=== PATIENT | male | born 1960 | race Caucasian/White ===

== ENCOUNTER 2016-09-12 11:34 | Emergency (ER) | payer OTHER ==
[~2016-09-12] VITALS: Ht 172.7 cm; Wt 93.0 kg
--- NOTE | ~2016-09-12 | EKG ---
[place] [id number] [employer] [facility] [place] [address] ELECTROCARDIOGRAM REPORT Name: CLAUDIA CHERRY Room #: DEP Tracy#: [id number] Admission: 09/12/16 Attend Phys: Discharge: 09/12/16 Date of : 60 Report #: [id number] THIS REPORT FOR: //name// [facility] ED Test Date: 2016-09-12 Test Time: 12:06:23 Pat Name: CLAUDIA CHERRY Department: Room: Gender: Substitute Teacher: jack : 1960 Requested By: Peggy Lala Order Number: [id number] MD: Garett Medina Measurements Intervals Herman Rate: 85 P: 30 KS: 165 QRS: -6 QRSD: 96 T: 16 QT: 369 QTc: 439 Interpretive Statements Sinus rhythm Left atrial enlargement Probable anteroseptal infarct, old No previous ECG available for comparison Electronically Signed On 09-12-2016 23:00:07 CDT by Garett Medina [email or web address] <ELECTRONICALLY SIGNED> By: Garett Medina MD 09/12/16 2300 1206 [id number] Garett Medina MD /TOSHIA
[2016-09-12 12:40] LABS: ABSOLUTE NEUTROPHILS 3.9 thou/uL (1.4-8.2); BASOPHILS 0.6 % (0.0-2.0); EOSINOPHILS 3.3 % (0.0-3.0); HEMATOCRIT 44.8 % (42.0-52.0); HEMOGLOBIN 15.8 gm/dL (14.0-18.0); LYMPHOCYTES 29.5 % (24.0-44.0); MCH 30.9 pg (26.0-34.0); MCHC 35.2 g/dL (28.0-37.0); MCV 87.7 fL (80.0-100.0); MONOCYTES 8.3 % (1.0-8.0); PLATELET COUNT 179 thou/uL (150-400); POLYS 58.3 % (36.0-66.0); RBC 5.11 mil/uL (4.50-6.00); WBC 6.7 thou/uL (4.0-11.0)
[2016-09-12 12:41] LABS: MANUAL DIFF NO
[2016-09-12 12:50] LABS: CALCIUM 9.3 mg/dL (8.5-10.1); CREATININE 0.9 mg/dL (0.7-1.3); POTASSIUM 4.1 mmol/L (3.5-5.1)
[2016-09-12] MEDS ORDERED: HYDROCODONE-AP1 EAC6 PO (13:34)
[2016-09-12] MEDS ORDERED: JANUVIA50 MG PO (13:56)
[2016-09-12] MEDS ORDERED: NEURONTIN600 MG PO (13:56)
[2016-09-12 14:03] VITALS: BP 145/90
== END 2016-09-12 13:35 | disposition home or self-care (01) ==
LOC: ER 11:34
PROVIDERS: Emergency Medicine
DX: F07.81 Postconcussional syndrome (principal); E11.9 Type 2 diabetes mellitus without complications; S00.93XA Contusion of unspecified part of head, initial encounter; Y04.8XXA Assault by other bodily force, initial encounter; Y93.89 Activity, other specified; Y92.89 Other specified places as the place of occurrence of the external cause; Y99.8 Other external cause status

== ENCOUNTER 2016-09-20 11:50 | Emergency (ER) | payer OTHER ==
[~2016-09-20] VITALS: Ht 172.7 cm; Wt 91.2 kg
[~2016-09-20 11:50] MED LIST: HYDROCODONE-AP1 EAC6 PO; JANUVIA50 MG PO; NEURONTIN600 MG PO
[2016-09-20] MEDS ORDERED: MOBIC15 MG PO (12:43)
[2016-09-20] MEDS ORDERED: COMPAZINE10 MG PO (12:43)
[2016-09-20 13:34] VITALS: BP 141/96
== END 2016-09-20 12:44 | disposition home or self-care (01) ==
LOC: ER 11:50
DX: F07.81 Postconcussional syndrome (principal); G44.319 Acute post-traumatic headache, not intractable; E11.9 Type 2 diabetes mellitus without complications